=== PATIENT | male | born 1965 | race Caucasian/White ===

== ENCOUNTER 2019-10-06 13:58 | Emergency (ER) | payer MEDICAID ==
[~2019-10-06] VITALS: Ht 177.8 cm; Wt 99.0 kg
[2019-10-06] MEDS ORDERED: AMOXICILLIN/POTASSIUM CLAVULANATE 875/125MG TAB PO ONE (14:30)
[2019-10-06] MEDS ORDERED: IBUPROFEN 600MG TABLET PO ONE (14:30)
[2019-10-06 15:20] VITALS: BP 155/92
== END 2019-10-06 15:28 | disposition home or self-care (01) ==
LOC: ER 13:58
DX: H60.8X1 Other otitis externa, right ear (principal); R42 Dizziness and giddiness; Z87.01 Personal history of pneumonia (recurrent)
CPT/HCPCS: 99283